=== PATIENT | male | born 1990 | race Caucasian/White ===

== ENCOUNTER 2022-12-14 09:14 | Emergency (ER) | payer MEDICAID ==
[~2022-12-14] VITALS: Ht 182.9 cm; Wt 100.0 kg
[2022-12-14 09:23] VITALS: BP 160/96
[2022-12-14] MEDS ORDERED: ATI1T PO (10:02)
[2022-12-14] MEDS ORDERED: ONDA4TAB12 PO (10:02)
== END 2022-12-14 10:06 | disposition home or self-care (01) ==
LOC: ER 09:14
DX: F11.99 Opioid use, unspecified with unspecified opioid-induced disorder (principal); F17.200 Nicotine dependence, unspecified, uncomplicated; Z88.2 Allergy status to sulfonamides; Z59.00 Homelessness unspecified
CPT/HCPCS: 99283